=== PATIENT | male | born 1960 | race Two or more races ===

== ENCOUNTER 2023-08-29 12:07 | Outpatient (OUT) | payer OTHER, SELFPAY ==
--- NOTE | 2023-08-29 13:14 | P.GSHP_ITS ---
History of Present Illness History of Present Illness Chief complaint: Right olecranon bursitis Narrative: Patient presents for preadmission testing accompanied by his . Please see HPI from Dr. Brown dated 08/28/2023. Review of Systems ROS Narrative Please see ROS from Dr. Brown dated 08/28/2023. [facility] Medical History (Updated 08/29/23 @ 13:02 by Geri Guzman NP) Sleep apnea ?G47.30 - Sleep apnea, unspecified (ICD-10) Pneumonia ?J18.9 - Pneumonia, unspecified organism (ICD-10) Asthma ?J45.909 - Unspecified asthma, uncomplicated (ICD-10) Kidney stones ?N20.0 - Calculus of kidney (ICD-10) GERD (gastroesophageal reflux disease) ?K21.9 - Gastro-esophageal reflux disease without esophagitis (ICD-10) Extremity edema ?R60.0 - Localized edema (ICD-10) Crush injury lower leg ?S87.80XA - Crushing injury of unspecified lower leg, initial encounter (ICD- 10) Olecranon bursitis ?M70.20 - Olecranon bursitis, unspecified elbow (ICD-10) Surgical History (Updated 08/29/23 @ 13:02 by Geri Guzman NP) History of cholecystectomy ?Z90.49 - Acquired absence of other specified parts of digestive tract (ICD- 10) History of appendectomy ?Z90.49 - Acquired absence of other specified parts of digestive tract (ICD- 10) History of colonoscopy ?Z98.890 - Other specified postprocedural states (ICD-10) History of tonsillectomy and adenoidectomy ?Z90.89 - Acquired absence of other organs (ICD-10) History of hernia repair ?Z98.890 - Other specified postprocedural states (ICD-10) ?Z87.19 - Personal history of other diseases of the digestive system (ICD-10) History of foot surgery ?Z98.890 - Other specified postprocedural states (ICD-10) History of hernia repair ?Z98.890 - Other specified postprocedural states (ICD-10) ?Z87.19 - Personal history of other diseases of the digestive system (ICD-10) History of repair of rotator cuff ?Z98.890 - Other specified postprocedural states (ICD-10) History of gastric bypass ?Z98.84 - Bariatric surgery status (ICD-10) History of arthroplasty of knee ?Z96.659 - Presence of unspecified artificial knee joint (ICD-10) Family History (Updated 08/29/23 @ 13:02 by Geri Guzman NP) Other ALS (amyotrophic lateral sclerosis) Arthritis Family history of cancer Family history of diabetes mellitus Family history of stroke Heart disease Social History (Updated 08/29/23 @ 12:54 by Geri Guzman NP) Within the past year, how often did you have a drink containing alcohol: monthly or less Smoking status: Current every day smoker What tobacco products do you use: cigarettes Packs per day: 2 Years smoked: 43 Smoking pack-years: 86.00 Non-prescribed substance use: denies use Highest level of school completed/degree received: high school graduate Meds Home Medications and Allergies Home Medications Medication Instructions Recorded Confirmed Type albuterol sulfate 2.5 mg/3 mL 2.5 mg inhalation Q6H PRN 08/29/23 08/29/23 History (0.083 %) solution for nebulization shortness of breath or wheezing albuterol sulfate 90 mcg/actuation 2 puff inhalation Q4H PRN 08/29/23 08/29/23 History aerosol inhaler shortness of breath or wheezing alendronate 70 mg tablet 70 mg PO QWEEK 08/29/23 08/29/23 History calcium citrate 200 mg (950 mg) 200 mg PO DAILY 08/29/23 08/29/23 History tablet cholecalciferol (vitamin D3) 25 1,000 unit PO DAILY 08/29/23 08/29/23 History mcg (1,000 unit) capsule cyclobenzaprine 10 mg tablet 10 mg PO Q8H PRN muscle spasm 08/29/23 08/29/23 History doxycycline hyclate 20 mg tablet 20 mg PO DAILY 08/29/23 08/29/23 History fluticasone fur. 100 mcg-umeclid 1 inh inhalation Q24H 08/29/23 08/29/23 History 62.5 mcg-vilant 25 mcg inhalat.powder (Trelegy Ellipta) furosemide 20 mg tablet 20 mg PO DAILY 08/29/23 08/29/23 History niacin 50 mg tablet 50 mg PO DAILY 08/29/23 08/29/23 History pantoprazole 20 mg tablet,delayed 20 mg PO Q12H 08/29/23 08/29/23 History release potassium chloride 20 mEq 20 meq PO DAILY 08/29/23 08/29/23 History tablet,extended release tamsulosin 0.4 mg capsule 0.4 mg PO Q24H 08/29/23 08/29/23 History Allergies Allergy/AdvReac Type Severity Reaction Status Date / Time cephalexin [From Keflex] Allergy Hives Verified 08/29/23 12:48 cortisone Allergy Blister Verified 08/29/23 12:48 Exam Narrative Exam Narrative: Constitutional: Awake, alert, comfortable, well-appearing, nontoxic, interactive, vital signs as charted Head: Normocephalic, atraumatic Neck: Supple, normal appearance, normal range of motion, no meningeal signs, no lymphadenopathy Respiratory: No respiratory distress, breath sounds clear Cardiovascular: Regular rate and rhythm, strong and regular heart tones Skin: No rashes or induration, no lesions, only visible skin inspected Neuro: No neurological deficits, normal sensation Psychiatric: Oriented ?3, normal affect Assessment and Plan Assessment and Plan (1) Olecranon bursitis: Plan Right olecranon bursa excision scheduled with Dr. Brown 09/03/2023.
[2023-08-29 13:38] LABS: Anion Gap 10.8; BUN Creatinine Ratio 15.4; Calcium 7.4 mg/dL (8.5-10.1); Carbon Dioxide 24.9 mmol/L (21.0-32.0); Chloride 107 mmol/L (98-107); Estimated GFR (African America >60 (>=60); Estimated GFR (Non-African Ame >60 (>=60); Glucose 83 mg/dL (74-106); Potassium 3.7 mmol/L (3.5-5.1); Sodium 139 mmol/L (136-145)
== END 2023-08-29 12:08 | disposition home or self-care (01) ==
LOC: PST 12:11
PROVIDERS: Visit Provider Orthopaedic Surgery
DX: Z01.812 Encounter for preprocedural laboratory examination (principal); Z01.818 Encounter for other preprocedural examination; M70.21 Olecranon bursitis, right elbow
CPT/HCPCS: 80048; G0463